=== PATIENT | male | born 1970 | race Caucasian/White ===

== ENCOUNTER 2017-01-13 21:32 | Emergency (ER) | payer BC, OTHER ==
[~2017-01-13] VITALS: Ht 182.9 cm; Wt 82.6 kg
[2017-01-13] MEDS ORDERED: LISI10TA2 PO (21:45)
[2017-01-13 22:01] LABS: BASOPHILS % (AUTO) 0 % (0-10); EOSINOPHILS # (AUTO) 0.3 10^3/uL (0.0-0.3); EOSINOPHILS % (AUTO) 2 % (0-10); LYMPHOCYTES # (AUTO) 2.9 X 10^3 (1.0-4.0); LYMPHOCYTES % (AUTO) 20 % (12-44); MEAN CORPUSCULAR HEMOGLOBIN 32 PG (25-34); MEAN CORPUSCULAR HGB CONC 35 G/DL (32-36); MEAN CORPUSCULAR VOLUME 91 FL (80-99); MEAN PLATELET VOLUME 9.9 FL (7.4-10.4); MONOCYTES # (AUTO) 1.1 X 10^3 (0.0-1.0); MONOCYTES % (AUTO) 8 % (0-12); NEUTROPHILS # (AUTO) 9.8 X 10^3 (1.8-7.8); NEUTROPHILS % (AUTO) 69 % (42-75); PLATELET COUNT 260 10^3/uL (130-400); RED CELL DISTRIBUTION WIDTH 13.1 % (10.0-14.5); WHITE BLOOD COUNT 14.1 10^3/uL (4.3-11.0)
[2017-01-13 22:10] LABS: INR 0.9 (0.8-1.4); PROTHROMBIN TIME PATIENT 12.2 SEC (12.2-14.7)
[2017-01-13 22:19] LABS: BAND NEUTROPHILS 0 %; BASOPHILS % (MANUAL) 1 %; EOSINOPHILS % (MANUAL) 1 %; LYMPHOCYTES % (MANUAL) 29 %; NEUTROPHILS % (MANUAL) 66 %
[2017-01-13 22:21] LABS: ALANINE AMINOTRANSFERASE 19 U/L (0-55); ALBUMIN 4.6 G/DL (3.2-4.5); ANION GAP 11 MMOL/L (5-14); ASPARTATE AMINO TRANSFERASE 18 U/L (5-34); BILIRUBIN,TOTAL 0.2 MG/DL (0.1-1.0); BLOOD UREA NITROGEN 22 MG/DL (7-18); BUN/CREATININE RATIO 22; CALCIUM 9.8 MG/DL (8.5-10.1); CARBON DIOXIDE 27 MMOL/L (21-32); CHLORIDE 105 MMOL/L (98-107); CREATININE SERUM 0.98 MG/DL (0.60-1.30); GFR ESTIMATED > 60; GLUCOSE 119 MG/DL (70-105); LIPASE 36 U/L (8-78); SODIUM 143 MMOL/L (135-145); TOTAL PROTEIN 7.4 G/DL (6.4-8.2); hs C REACTIVE PROTEIN 0.43 MG/DL (0.00-0.50)
[2017-01-13] MEDS ORDERED: IOHEXOL 350 MG/ML 100 ML (OMNIPAQUE 350) VIAL IV ONE (23:00)
[2017-01-13] MEDS ORDERED: NS 100 ML (IVPB) BAG IV ONE (23:00)
[2017-01-14] MEDS ORDERED: METR500T PO (00:25)
[2017-01-14] MEDS ORDERED: ONDA4TAB8 SL (00:25)
[2017-01-14] MEDS ORDERED: CIPR-225 PO (00:25)
--- NOTE | 2017-01-14 00:25 | ED Abdominal Pain ---
General Chief Complaint: Abdominal/GI Problems Stated Complaint: BLOOD IN STOOL AB PAIN Nursing Triage Note: c/o lower abdominal cramping, left sided abdominal pain since 0230 01/13/17 Sepsis Screen: No Definite Risk Source of Information: Patient History of Present Illness Time Seen By Provider: 21:41 Initial Comments This 46-year-old gentleman presents to emergency room with complaints of abdominal cramping, diaphoresis, vomiting, and rectal bleeding 5 episodes this evening. Symptoms started around 02:30. He has had abdominal cramping throughout the day but denies any diarrhea. Each passage of blood was approximately 2 tablespoons in volume and was not mixed with stool. He took Pepto dismal at home. He denies any dyspnea or lightheadedness. He has a bruise on his left upper arm from a prior injury. He denies any use of blood thinning medications. He does have a history of hemorrhoids. Allergies and Home Medications Allergies Coded Allergies: No Known Drug Allergies (Unverified , 01/13/17) Home Medications Ciprofloxacin HCl 500 Mg Tablet, 500 MG PO BID, #20 Prescribed by: ESTELA FORBES on 01/14/1724 Lisinopril 10 Mg Tablet, 10 MG PO DAILY, (Reported) Metronidazole 500 Mg Tablet, 500 MG PO TID, #30 Prescribed by: ESTELA FORBES on 01/14/1724 Ondansetron 4 Mg Tab.rapdis, 4 MG SL Q4H PRN for NAUSEA/VOMITING, #10 Prescribed by: ESTELA FORBES on 01/14/1724 Review of Systems Constitutional: see HPI, diaphoresis EENTM: No Symptoms Reported Respiratory: No Symptoms Reported Cardiovascular: No Symptoms Reported Gastrointestinal: See HPI Genitourinary: No Symptoms Reported Musculoskeletal: no symptoms reported Skin: no symptoms reported Psychiatric/Neurological: No Symptoms Reported Endocrine: No Symptoms Reported Hematologic/Lymphatic: See HPI Past Icqwnvp-Yssqcd-Xonedg Hx Patient Social History Alcohol Use: Occasionally Uses Recreational Drug Use: No Smoking Status: Current Everyday Smoker Type Used: Cigarettes 2nd Hand Smoke Exposure: Yes Recent Foreign Travel: No Contact w/Someone Who Travel: No Recent Infectious Disease Expo: No Recent Hopitalizations: No Immunizations Up To Date Tetanus Booster (TDap): Less than 5yrs Seasonal Allergies Seasonal Allergies: No Surgeries HX Surgeries: Yes Surgeries: Vasectomy Respiratory Hx Respiratory Disorders: No Cardiovascular Hx Cardiac Disorders: Yes Cardiac Disorders: Hypertension Neurological Hx Neurological Disorders: No Reproductive System Hx Reproductive Disorders: No Genitourinary Hx Genitourinary Disorders: No Gastrointestinal Hx Gastrointestinal Disorders: Yes Gastrointestinal Disorders: Hemorrhoids Musculoskeletal Hx Musculoskeletal Disorders: No Endocrine Hx Endocrine Disorders: No HEENT HX ENT Disorders: No Cancer Hx Cancer: No Psychosocial Hx Psychiatric Problems: No Integumentary HX Skin/Integumentary Disorder: No Blood Transfusions Hx Blood Disorders: No Family Medical History Significant Family History: Cancer (Bone), Diabetes, Hypertension Physical Exam Vital Signs Capillary Refill : Less Than 3 Seconds General Appearance: WD/WN, no apparent distress HEENT: PERRL/EOMI, normal ENT inspection, pharynx normal Neck: normal inspection Respiratory: lungs clear, normal breath sounds, no respiratory distress, no accessory muscle use Cardiovascular: regular rate, rhythm, no edema, no murmur Gastrointestinal: normal bowel sounds, soft, tenderness (Left lower abdomen) Rectal: normal rectal tone, tenderness, other (No active bleeding at the anus. 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 as tested, no motor/sensory deficits, alert, normal mood/affect, oriented x 3 Skin: normal color, warm/dry Progress/Results/Core Measures Results/Orders Lab Results Laboratory Tests Test 01/13/17 21:50 Range/Units White Blood Count 14.1 H 4.3-11.0 10^3/uL Red Blood Count 5.00 4.35-5.85 10^6/uL Hemoglobin 16.0 13.3-17.7 G/DL Hematocrit 46 40-54 % Mean Corpuscular Volume 91 80-99 FL Mean Corpuscular Hemoglobin 32 25-34 PG Mean Corpuscular Hemoglobin Concent 35 32-36 G/DL Red Cell Distribution Width 13.1 10.0-14.5 % Platelet Count 260 130-400 10^3/uL Mean Platelet Volume 9.9 7.4-10.4 FL Neutrophils (%) (Auto) 69 42-75 % Lymphocytes (%) (Auto) 20 12-44 % Monocytes (%) (Auto) 8 0-12 % Eosinophils (%) (Auto) 2 0-10 % Basophils (%) (Auto) 0 0-10 % Neutrophils # (Auto) 9.8 H 1.8-7.8 X 10^3 Lymphocytes # (Auto) 2.9 1.0-4.0 X 10^3 Monocytes # (Auto) 1.1 H 0.0-1.0 X 10^3 Eosinophils # (Auto) 0.3 0.0-0.3 10^3/uL Basophils # (Auto) 0.0 0.0-0.1 10^3/uL Neutrophils % (Manual) 66 % Lymphocytes % (Manual) 29 % Monocytes % (Manual) 3 % Eosinophils % (Manual) 1 % Basophils % (Manual) 1 % Band Neutrophils 0 % Blood Morphology Comment NORMAL Prothrombin Time 12.2 12.2-14.7 SEC INR Comment 0.9 0.8-1.4 Activated Partial Thromboplast Time 25 24-35 SEC Sodium Level 143 135-145 MMOL/L Potassium Level 4.0 3.6-5.0 MMOL/L Chloride Level 105 98-107 MMOL/L Carbon Dioxide Level 27 21-32 MMOL/L Anion Gap 11 5-14 MMOL/L Blood Urea Nitrogen 22 H 7-18 MG/DL Creatinine 0.98 0.60-1.30 MG/DL Estimat Glomerular Filtration Rate > 60 BUN/Creatinine Ratio 22 Glucose Level 119 H 70-105 MG/DL Calcium Level 9.8 8.5-10.1 MG/DL Total Bilirubin 0.2 0.1-1.0 MG/DL Aspartate Amino Transf (AST/SGOT) 18 5-34 U/L Alanine Aminotransferase (ALT/SGPT) 19 0-55 U/L Alkaline Phosphatase 102 40-136 U/L C-Reactive Protein High Sensitivity 0.43 0.00-0.50 MG/DL Total Protein 7.4 6.4-8.2 G/DL Albumin 4.6 H 3.2-4.5 G/DL Lipase 36 8-78 U/L My Orders Orders - ESTELA DARBY MD Cbc With Automated Diff (01/13/17 21:39) Comprehensive Metabolic Panel (01/13/17 21:39) Hs C Reactive Protein (01/13/17 21:39) Lipase (01/13/17 21:39) Protime With Inr (01/13/17 21:39) Partial Thromboplastin Time (01/13/17 21:39) Saline Lock/Iv-Start (01/13/17 21:39) Fecal Occult Bedside (01/13/17 21:39) Manual Differential (01/13/17 21:50) Ct Abdomen/Pelvis W (01/13/17 22:34) Iohexol Injection (Omnipaque 350 Mg/Ml 1 (01/13/17 23:00) Ns (Ivpb) (Sodium Chloride 0.9% Ivpb Bag (01/13/17 23:00) Ciprofloxacin Tablet (Cipro Tablet) (01/14/17 00:30) Metronidazole Tablet (Flagyl Tablet) (01/14/17 00:30) Medications Given in ED Vital Signs/I&O Blood Pressure Mean: 94 Point of Care Testing Fecal Occult: Positive Progress Note #1: Progress Note Because of the rectal bleeding, abdominal pain and cramping, and elevated WBC, CT of the abdomen and pelvis was obtained. Colitis was identified. Patient was given his initial dose of Cipro and Flagyl in the ER. Progress Note #2: Progress Note January 22, 2017, 14:25 - Patient was contacted by phone and informed of the [facility] radiologist's interpretation and was advised to have a colonoscopy performed. He was instructed to follow-up with his primary care provider for referral for endoscopy. He expressed understanding. Diagnostic Imaging Diagonstic Imaging: CT Plain Films/CT/US/NM/MRI: abdomen, pelvis Comments CT of the abdomen and pelvis viewed by me. Stat Rad report reviewed. Colitis was suspected. Departure Impression Impression: Primary Impression: Colitis Additional Impressions: Abdominal pain Qualified Codes: R10.32 - Left lower quadrant pain Hematochezia Nausea and vomiting Qualified Codes: R11.2 - Nausea with vomiting, unspecified Disposition: HOME, SELF-CARE Condition: Improved Departure-Patient Inst. Decision time for Depature: 00:15 Referrals: NO,LOCAL PHYSICIAN (PCP) Primary Care Physician Patient Instructions: Gastrointestinal Bleeding Add. Discharge Instructions: Complete your antibiotics as prescribed. You may take Tylenol for pain. Avoid use of anti-inflammatory indications such as ibuprofen or naproxen as they may worsen bleeding. Follow-up with your primary care provider soon as possible. Return to care if symptoms worsen or if you develop new symptoms such as fever. Observe a clear liquid diet until pain and bleeding improve. Then gradually advance your diet with small quantities of bland food as tolerated. Fill Zofran if needed for control of nausea. All discharge instructions reviewed with patient and/or family. Voiced understanding. Scripts Metronidazole (Flagyl) 500 Mg Tablet 500 MG PO TID, #30 TAB Prov: ESTELA DARBY MD 01/14/17 Ciprofloxacin HCl (Cipro) 500 Mg Tablet 500 MG PO BID, #20 TAB Prov: ESTELA DARBY MD 01/14/17 Ondansetron (Zofran Odt) 4 Mg Tab.rapdis 4 MG SL Q4H Y for NAUSEA/VOMITING, #10 TAB Prov: ESTELA DARBY MD 01/14/17 Copy Copies To 1: JENNIFER GARCIA JOSHUA T MD Jan 14, 2017 00:25
[2017-01-14 00:29] VITALS: BP 112/73
[2017-01-14] MEDS ORDERED: CIPROFLOXACIN 500 MG (CIPRO) TABLET PO ONE (00:30)
[2017-01-14] MEDS ORDERED: metroNIDAZOLE 500 MG (FLAGYL) TAB PO ONE (00:30)
--- NOTE | 2017-01-14 07:49 | Diagnostic Imaging Report ---
PROCEDURE: CT abdomen and pelvis with contrast. TECHNIQUE: Multiple contiguous axial images were obtained through the abdomen and pelvis after administration of intravenous contrast. INDICATION: Left lower quadrant pain with nausea and vomiting COMPARISON: None available FINDINGS: Minimal dependent atelectasis within the right lung base. The liver, spleen, pancreas, and adrenal glands are unremarkable. The gallbladder is completely decompressed though no definite large gallstones or pericholecystic inflammatory stranding seen. Bilateral renal cysts and additional hypodensities which are too small to completely characterize. No evidence of hydronephrosis. Mild vascular calcifications within the abdominal aorta and its branch vessels without aneurysmal dilatation of the abdominal aorta. The urinary bladder is unremarkable. Tiny fat-containing left inguinal hernia. The sigmoid colon is not well-distended. Questionable mural thickening of the sigmoid colon without adjacent inflammatory stranding. Significant mural thickening of the descending colon is noted with adjacent fat stranding. Persistent focal mural thickening is noted involving the proximal transverse colon. This persists and is not significantly changed on the delayed imaging. No evidence of bowel obstruction. The appendix is unremarkable. No pneumatosis. No significant adenopathy, free air, or free fluid within the abdomen or pelvis. No acute osseous abnormality. IMPRESSION: Significant mural thickening with adjacent inflammatory stranding associated with the descending colon, likely related to an underlying colitis, most likely infectious or inflammatory in nature. Persistent focal ringlike mural thickening associated with the proximal transverse colon. Although this may simply relate to poor distention, neoplasm is not excluded. Recommend correlation with most recent endoscopy. If the patient has not had an endoscopy, consideration for endoscopy should be made. Bilateral renal cysts and additional hypodensities which are too small to completely characterize. Mural thickening of the sigmoid colon without adjacent fat stranding. This may simply relate to poor distention, though mild colitis within this region not totally excluded. The gallbladder is completely decompressed. Agree with acute preliminary findings. However, preliminary report did not mention the questionable lesion within the proximal transverse colon. Report was faxed and called to [facility] ER by yisel at 7:48 am. BUCK Du, was also notified. Dictated by: Dictated on workstation # [id number]
== END 2017-01-14 00:28 | disposition home or self-care (01) ==
LOC: EDUNIT# 21:32 → ER 21:38
DX: K52.9 Noninfective gastroenteritis and colitis, unspecified (principal); K92.1 Melena; I10 Essential (primary) hypertension; N28.1 Cyst of kidney, acquired; F17.210 Nicotine dependence, cigarettes, uncomplicated; Z79.899 Other long term (current) drug therapy
CPT/HCPCS: 36415; 74177; 80053; 83690; 85007; 85027; 85610; 85730; 86141

== ENCOUNTER 2017-01-31 05:40 | Outpatient (CLI) | payer BC ==
[~2017-01-31] VITALS: Ht 182.9 cm; Wt 82.6 kg
[~2017-01-31 05:40] MED LIST: CIPR-225 PO; LISI10TA2 PO; METR500T PO; ONDA4TAB8 SL
== END 2017-01-31 13:55 ==
LOC: PREOP 05:40
PROVIDERS: ATTEND Surgery Pediatric Surgery
DX: Z01.818 Encounter for other preprocedural examination (principal); K92.2 Gastrointestinal hemorrhage, unspecified

== ENCOUNTER 2017-02-02 11:05 | Day surgery (SDC) | payer BC ==
[~2017-02-02] VITALS: Ht 182.9 cm; Wt 82.6 kg
[2017-02-02 11:15] VITALS: BP 123/76
[2017-02-02] MEDS ORDERED: NS IV 500 ML 500 ML IV PRN (11:15)
[2017-02-02] MEDS ORDERED: LIDOCAINE JELLY 2% (XYLOCAINE) 5 ML TUBE MM PRN (11:15)
[2017-02-02] MEDS ORDERED: NALOXONE 0.4 MG/ML 1 ML (NARCAN) VIAL IVP PRN (11:15)
[2017-02-02] MEDS ORDERED: FLUMAZENIL (ROMAZICON) 0.1 MG/ML 5 ML VIAL INJ PRN (11:15)
--- NOTE | 2017-02-02 12:51 | Conscious Sedation/ASA ---
Conscious Sedation Pre-Proced Time Reviewed: 12:05 ASA Class: 2 Airway Mallampati Classification: ([place] appropriate class) I. II. III, IV Lungs Heart ASA score ASA 1: a normal healthy patient ASA 2: a patient with a mild systemic disease (mid diabetes, controlled hypertension, obesity ASA 3: a patient with a severe systemic disease that limits activity (angina , COPD, prior Myocardial infarction) ASA 4: a patient with an incapacitating disease that is a constant threat to life (CHF, renal failure) ASA 5: a moribund patient not expected to survive 24 hrs. (ruptured aneurysm) ASA 6: a declared brain patient whose organs are being harvested. For emergent operations, add the letter E after the classification Grade 2 Sedation Plan: Analgesia, Amnesia, Plan communicated to team members, Discussed options with patient/fam, Discussed risks with patient/fam Note The patient is an appropriate candidate to undergo the planned procedure, sedation, and anesthesia. The patient immediately re-assessed prior to indication. FADI BECERRA MD Feb 02, 2017 12:51 pm
--- NOTE | 2017-02-02 12:51 | Progress Note-Pre Operative ---
Pre-Operative Progress Note H&P Reviewed The H&P was reviewed, patient examined and no changes noted. Date H&P Reviewed: Feb 02, 2017 Time H&P Reviewed: 12:05 Pre-Operative Diagnosis: hx colitis FADI BECERRA MD Feb 02, 2017 12:51 pm
[2017-02-02] MEDS ORDERED: ACETAMINOPHEN 325 MG TABLET/CAPLET (TYLENOL) PO PRN (13:00)
[2017-02-02] MEDS ORDERED: HYDROcodone/APAP 5 MG/325 MG (LORTAB) TAB PO PRN (13:00)
[2017-02-02] MEDS ORDERED: morphine INJ 10 MG/ML 1ML (SYR OR VIAL) IV PRN (13:00)
[2017-02-02] MEDS ORDERED: ONDANSETRON 4 MG/2 ML (SDV) Z0FRAN IV PRN (13:00)
[2017-02-02] MEDS ORDERED: MIDAZOLAM 2 MG/2 ML (VERSED) VIAL ONE ×4 (13:10)
[2017-02-02] MEDS ORDERED: LIDOCAINE JELLY 2% (XYLOCAINE) 5 ML TUBE ONE (13:11)
[2017-02-02] MEDS ORDERED: fentaNYL INJECTION 100 MCG/2 ML AMP ONE ×2 (13:11)
[2017-02-02] MEDS: fentaNYL INJECTION 100 MCG/2 ML AMP IVP PRN ×4 (13:25→13:55)
[2017-02-02] MEDS: MIDAZOLAM 2 MG/2 ML (VERSED) VIAL IVP PRN ×4 (13:28→13:56)
--- NOTE | 2017-02-02 14:16 | Progress Note-Post Operative ---
Post-Operative Progess Note Surgeon (s)/Pararescue Craftsman (s) Surgeon FADI BECERRA MD Pararescue Craftsman: none Pre-Operative Diagnosis hx colitis Post-Operative Diagnosis chronic stage 1 ext and int hemorrhoids, small patch inflammation hepatic flexure. Post-Op Procedure Note Date of Procedure: Feb 02, 2017 Name of Procedure Performed: Colonoscopy with bx. Description of the Procedure: Colonoscopy with bx. Findings of the Procedure . Anesthesia Type CS Estimated blood loss (mL): minimal Specimen(s) collected/removed hepatic flexure FADI BECERRA MD Feb 02, 2017 2:16 pm
--- NOTE | 2017-02-02 14:17 | Discharge Inst-Surgical ---
D/C Lap Instructions-HERNAN Follow Up PRN Activity as tolerated High Fiber Diet 25g or more per day Avoid Alcohol, Caffeine, Spicy Caberfae and Acid foods. Drink 64 fluid oz or more of fluids per day. Symptoms to Report: Fever over 101 degree F, Nausea/Vomiting If any problems/questions: Contact your physician or go to Emergency Room FADI BECERRA MD Feb 02, 2017 2:17 pm
[2017-02-02 14:30] VITALS: BP 128/76
[2017-02-02 14:57] VITALS: BP 130/78
[2017-02-02 14:59] VITALS: BP 130/78
--- NOTE | 2017-02-02 16:24 | OPERATIVE REPORT ---
DATE OF SERVICE: 02/02/2017 PREOPERATIVE DIAGNOSIS: Abdominal pain, colitis. POSTOPERATIVE DIAGNOSIS: Mild chronic stage I external and internal hemorrhoids. There was a small solitary patch of inflammation at approximately the hepatic flexure. No ulcerations. PROCEDURE: Colonoscopy with biopsy. SURGEON: Dr. Becerra. ANESTHESIA: Conscious sedation. ESTIMATED BLOOD LOSS: Minimal. FINDINGS: Chronic stage I external and internal hemorrhoids. Prostate gland was palpable and appeared normal. The rectum and sigmoid colon were normal, as was the transverse colon and descending colon. There was a very small patch of inflammation along the hepatic flexure. No ulcerations. This was biopsied using forceps with visualization and good hemostasis. The endoscope was then advanced through the ascending colon, the cecum and these segments were normal. There were no polyps or any neoplasms identified throughout the colon or rectum. DISPOSITION: The patient tolerated the procedure well. The patient is a 46-year-old male who has had issues with abdominal pain in the left lower abdominal quadrant which is crampy in nature with associated nausea and vomiting. He had a CT scan performed which did show mural thickening and inflammatory stranding around the descending colon, as well as proximal transverse colon. He does not report any diffuse or intermittent episodes of diarrhea, as well as no red blood per rectum. He does have risk factors for ischemic colitis including hypertension and greater than 20 year smoking history. 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 The patient was brought to the endoscopy suite and laid in the left lateral decubitus position. After adequate IV pain and sedative medications and conscious sedation anesthesia, a digital rectal examination was performed. Mild chronic stage I external and internal hemorrhoids were identified which were not edematous and no bleeding. Normal sphincter tone was felt, and there were no palpable masses. The prostate gland was palpable and appeared normal. The endoscope was then intubated to the anus and rectum and gently insufflated. The endoscope was then advanced thru the valves of Case of the rectum with no polyps or anyneoplasms identified. We then proceeded through the sigmoid colon. There were no diverticulosis identified. The endoscope was then advanced to the descending colon and the transverse colon. At approximately the hepatic flexure, there was a very small patch of inflammation approximately 1 cm in size. There were no ulcerations. This was biopsied using forceps for visualization and good hemostasis. The endoscope was then advanced through the ascending colon and the cecum. These segments were normal. There were no polyps or any neoplasms identified throughout the colon or rectum, as well as no severe inflammatory changes. The endoscope was then slowly withdrawn with taking a second look and suctioning all residual air with no additional findings. The patient tolerated the procedure well. We will await the biopsy results; however, this was most likely secondary to an ischemic colitis due to low flow states due to the nature of his work, as well as smoking history. We will also recommend smoking cessation, as well as staying hydrated, especially during warm weather. Job ID: [id number] DocumentID: [id number] Dictated Date: 02/02/2017 14:05:17 Regulatory Assistant Date: 02/02/2017 16:23:37 Dictated By: FADI BECERRA MD MTDD
== END 2017-02-02 15:02 | disposition home or self-care (01) ==
LOC: ENDO 11:05
PROVIDERS: ATTEND Surgery Pediatric Surgery
DX: K52.9 Noninfective gastroenteritis and colitis, unspecified (principal); K64.0 First degree hemorrhoids
CPT/HCPCS: 88305

== ENCOUNTER → 2019-09-24 | Outpatient (CLI) | payer BC ==
[~2019-09-24] VITALS: Ht 183 cm; Wt 87.0 kg
[~2019-09-24] MED LIST changes: +ACET325T38 PO; +ASPI-983 PO; +ATOR20TA66 PO; +CATHETER FLUSH 10 ML SYR IV PRN; +CETI10TA17 PO; +REGADENOSON 0.4 MG/5 ML SYR (LEXISCAN) IV ONE; +TICA90TA PO
[2019-09-24 09:46] VITALS: BP 145/61
--- NOTE | 2019-09-24 23:28 | STRESS TEST ---
DATE OF SERVICE: 09/24/2019 LEXISCAN MYOVIEW STRESS TEST Baseline heart rate is 57, baseline blood pressure 113/72. Baseline EKG is sinus rhythm with no ischemic changes. In summary, the patient was scheduled for exercise Myoview stress test, was unable to exercise beyond 8 minutes on standard Richardson protocol, test was converted to Lexiscan Myoview stress test. The patient received 0.4 mg of Lexiscan followed by 30.2 mCi of technetium-99 Myoview. Throughout the test, there were no EKG changes. The resting and stress images were reviewed and compared in the short axis, horizontal long axis, and vertical long axis views. Review of the images showed decreased uptake involving the whole inferior wall and inferoseptum with mild reversibility. SSS is 15, SDS 4, TID value 0.97. On the gated images, the left ventricle appeared to be normal size with hypokinesia at the inferior wall. Calculated ejection fraction 50%. CONCLUSION: 1. The patient was unable to achieve target heart rate. Test was terminated at minute 7 and converted to Lexiscan Myoview stress test. 2. The patient tolerated Lexiscan well. 3. Decreased uptake involving the whole inferior wall and inferoseptum with mild reversibility. 4. Normal left ventricular size with hypokinesia at the inferior wall. Calculated ejection fraction 50%. Job ID: [id number] DocumentID: [id number] Dictated Date: 09/24/2019 17:07:14 Medical Consultant Date: 09/24/2019 23:27:52 Dictated By: ROSA MARIA TADEO MD
== END ==
LOC: CARD 07:40
PROVIDERS: ATTEND Internal Medicine Cardiovascular Disease
DX: I10 Essential (primary) hypertension (principal); E78.2 Mixed hyperlipidemia; R07.89 Other chest pain; Z72.0 Tobacco use
CPT/HCPCS: 78452; 93017

== ENCOUNTER 2019-09-26 07:42 | Day surgery (SDC) | payer BC ==
[~2019-09-26] VITALS: Ht 182.8 cm; Wt 87.3 kg
[~2019-09-26 07:42] MED LIST changes: -ACET325T38 PO; -ASPI-983 PO; -ATOR20TA66 PO; -CATHETER FLUSH 10 ML SYR IV PRN; -CETI10TA17 PO; -REGADENOSON 0.4 MG/5 ML SYR (LEXISCAN) IV ONE; -TICA90TA PO
[2019-09-26] MEDS ORDERED: NS IV 1000 ML 1,000 ML IV SCH ×2 (07:53→08:00)
[2019-09-26] MEDS ORDERED: HEParin 1000 UNIT/ML (10ML VIAL) FOR BOLUS ONE ×2 (07:53→10:28)
[2019-09-26] MEDS ORDERED: LIDOCAINE 1% INJ 20 ML 20 ML VIAL ONE (07:53)
[2019-09-26] MEDS ORDERED: NS IV 1000 ML 3,000 ML ONE (07:54)
[2019-09-26 08:19] VITALS: BP 131/88
[2019-09-26 08:22] LABS: HEMOGLOBIN 15.1 G/DL (13.3-17.7); MEAN PLATELET VOLUME 9.8 FL (7.4-10.4); RED CELL DISTRIBUTION WIDTH 13.2 % (10.0-14.5); WHITE BLOOD COUNT 9.2 10^3/uL (4.3-11.0)
--- NOTE | 2019-09-26 08:27 | Diagnostic Imaging Report ---
Portable erect AP chest at 8:18. Indication: Preop heart cath. There are no prior studies available for comparison. The heart size is within normal limits. The lungs are clear. There is no evidence of failure, pneumonia or for pleural effusion. The mediastinum is not widened. The osseous structures are intact. Impression: There is no sign of active disease. Dictated by: Dictated on workstation # [id number]
[2019-09-26 08:37] LABS: PROTHROMBIN TIME PATIENT 13.4 SEC (12.2-14.7)
[2019-09-26 08:42] LABS: ALANINE AMINOTRANSFERASE 32 U/L (0-55); ALBUMIN 4.5 GM/DL (3.2-4.5); ALKALINE PHOSPHATASE 117 U/L (40-136); BILIRUBIN,TOTAL 0.4 MG/DL (0.1-1.0); BUN/CREATININE RATIO 14; CALCIUM 9.9 MG/DL (8.5-10.1); CARBON DIOXIDE 24 MMOL/L (21-32); CHLORIDE 104 MMOL/L (98-107); CHOLESTEROL 217 MG/DL (< 200); GFR ESTIMATED > 60; GLUCOSE 119 MG/DL (70-105); HDL CHOLESTEROL 28 MG/DL (40-60); POTASSIUM 4.3 MMOL/L (3.6-5.0); SODIUM 139 MMOL/L (135-145); TOTAL PROTEIN 7.6 GM/DL (6.4-8.2); TRIGLYCERIDES 213 MG/DL (<150); VLDL CHOLESTEROL 43 MG/DL (5-40)
[2019-09-26] MEDS ORDERED: ACET325T38 PO (08:49)
[2019-09-26] MEDS ORDERED: CETI10TA17 PO (08:49)
[2019-09-26] MEDS ORDERED: fentaNYL INJECTION 100 MCG/2 ML AMP ONE (09:31)
[2019-09-26] MEDS ORDERED: MIDAZOLAM 5 MG/5 ML (VERSED) VIAL ONE (09:31)
--- NOTE | 2019-09-26 10:06 | Cardiac Procedure Note-CS/ASA ---
Pre-Procedure Note Pre-Op Procedure Note H&P Reviewed The H&P was reviewed, patient examined and no changes noted. Date H&P Reviewed: Sep 26, 2019 Time H&P Reviewed: 10:06 Conscious Sedation Pre-Proced Time 10:06 ASA Score 3 For ASA 3 and 4: Consider anesthesia and medical clearance. Also, for patients with a history of failed moderate sedation consider anesthesia. Airway Lungs Heart ASA score ASA 1: a normal healthy patient ASA 2: a patient with a mild systemic disease (mid diabetes, controlled hypertension, obesity x ASA 3: a patient with a severe systemic disease that limits activity (angina, COPD, prior Myocardial infarction) ASA 4: a patient with an incapacitating disease that is a constant threat to life (CHF, renal failure) ASA 5: a moribund patient not expected to survive 24 hrs. (ruptured aneurysm) ASA 6: a declared brain- patient whose organs are being harvested. For emergent operations, add the letter E after the classification Mallampati Classification Grade 3 Sedation Plan Analgesia, Amnesia, Plan communicated to team members, Discussed options with patient/fam, Discussed risks with patient/fam The patient is an appropriate candidate to undergo the planned procedure, sedation, and anesthesia. The patient immediately re-assessed prior to indication. ROSA MARIA TADEO MD Sep 26, 2019 10:06 POS
[2019-09-26] MEDS ORDERED: ADENOSINE 3 MG/1 ML (ADENOSCAN) 30ML VIAL IV ONE (10:15)
[2019-09-26] MEDS ORDERED: NITRO DRIP 25000 MCG/D5W 250 ML IV ONE (10:33)
[2019-09-26] MEDS ORDERED: TICAGRELOR 90 MG TABLET (BRILINTA) PO ONE (10:41)
[2019-09-26] MEDS ORDERED: ASPIRIN 325 MG (5 GR) TABLET ONE (10:41)
[2019-09-26] MEDS ORDERED: PATIENT MAY USE OWN MEDS, ALL PO SCH (10:45)
--- NOTE | 2019-09-26 10:54 | Cardiac Cath Report ---
Cardiac Cath Report Physician (s)/Colloid Mill Operator (s) Physician ROSA MARIA TADEO MD Pre-Procedure Diagnosis Pre-Procedure Diagnosis: CAD Post-Procedure Note Procedure Start Date: Sep 26, 2019 Name of Procedure: [facility] FFR to LAD Stent to LAD Findings/Procedure Note PROCEDURE NOTE: 48 years old gentleman with abnormal stress test, scheduled For cardiac catheterization possible . After explaining the procedure to the patient, all pros and cons were explained, all questions were answered. The patient signed the consent and then he was placed on the cardiac catheterization laboratory. Groin was prepped SL fashion local anesthesia was used. Sheath placed in the right femoral artery. Jannie right and left catheter were used to access the coronary system. Pigtail was used to access the left ventricular cavity. Left ventriculogram was done Patient was loaded with heparin, FL guide was used, advanced to the left coronary system, patie, FFR was 0.88, after 45 minutes of Adenosine FFR was 0.75. Primary stenting using Alondra 2.5 x18 mm expanded to 2.8 mm under 15 walter with excellent results At the end of the procedure the sheath was removed. Closure device was used FINDINGS: Hemodynamics LV 90/2, end-diastolic pressure of 2 Aorta 102/67 mean of 24 ANATOMY: Left Main is free of obstructive disease Left Anterior Descending has severe mid stenosis, FFR is 0.75 with Adenosine, primary stenting using Alondra 2.5 x 18 mm expanded to 2.8 with excellent results Left Circumflex has moderate disease at the midportion Right Coronory Artery is dominant artery, totally occluded proximally, receiving collaterals from the LAD LV Gram is normal in size with hypokinesia at the base of the inferior wall, EF 60 percent CONCLUSION: 1. Severe mid LAD stenosis, primary stenting using Alondra 2.5 x 18 mm expanded to 2.8 mm with excellent results 2. Totally occluded large dominant right coronary artery, receiving collaterals from the LAD 3. Mild to moderate disease in the mid left circumflex artery 4. Normal left ventricular size, hypokinesia at the base of the inferior wall, EF 60 percent DISCUSSION AND RECOMMENDATION: maximize medical therapy, started on aspirin and Brilinta Anesthesia Type: Conscious Sedation Estimated blood loss (mL): 25 ml Contrast Amount: 133 ml Total Radiation Dose: 579 mGy Post-Procedure Diagnosis Post-operative diagnosis: Chest pain Coronary artery disease Hypertension Hyperlipidemia ROSA MARIA TADEO MD Sep 26, 2019 10:54 POS
[2019-09-26] MEDS ORDERED: ACETAMINOPHEN 325 MG TABLET PO PRN (11:00)
[2019-09-26 11:05] VITALS: BP 124/81
--- NOTE | 2019-09-26 11:13 | Discharge Inst-Post CATH ---
Discharge Inst-CATH/EP Problems Reviewed?: Yes Post Cardiac Cath/EP D/C Inst Follow Up/Plan Appointment with Dr. Urban's office in 2-4 weeks <b>CARDIAC CATH/EP PROCEDURE DISCHARGE INSTRUCTIONS</b> ACTIVITY * Go Home directly and rest. * Limit activity of the leg (or wrist if it was used) for 7 days including aerobics, swimming, jogging, bicycling, etc. * Restrict stair-climbing for 7 days if possible, if not, climb up with your non-cath leg, then bring together on the same step. * Avoid lifting, pushing, pulling or excessive movement of the affected extremity for 7 days. * Customary sexual activity may be resumed after 2 days-use caution not to use a position that strains or causes pain to the affected extremity. * No driving for 24 hours. * NO SMOKING. * Avoid straining for bowel movements for 7 days. * Gentle walking on level ground is allowed. * Returning to work will depend on the type of procedure and the results. Your doctor will discuss this with you. CALL YOUR DOCTOR FOR ANY OF THE FOLLOWING: *If bleeding from the puncture site occurs- Apply gentle pressure to site with clean cloth and call your doctor or EMS. * If a knot or lump forms under the skin, increases in size, or causes pain. * If bruising appears to be worsening or moving further down your leg instead of disappearing. * Temperature above 101 F. CARE OF YOUR GROIN INCISION; * Bruising or purple discoloration of the skin near the puncture site is common. * You may shower only, no bathtub bathing for 5 days. Be careful to avoid slipping as your leg may feel stiff. * If a closure device was used on your femoral artery, please see the attached guide regarding care of the device and your leg. * Leave dressing on FOR 24 hours. CARE OF YOUR WRIST INCISION; * Bruising or purple discoloration of the skin near the puncture site is common. * You may shower. * DO NOT submerge wrist. * Leave dressing on FOR 24 hours. ROSA MARIA URBAN MD Sep 26, 2019 11:13 POS
[2019-09-26] MEDS ORDERED: ATOR20TA66 PO (11:14)
[2019-09-26] MEDS ORDERED: ASPI-983 PO (11:14)
[2019-09-26] MEDS ORDERED: TICA90TA PO (11:14)
--- NOTE | 2019-09-26 14:03 | NUR ---
SPOKE WITH THE PT (HE HAD HIS HOME MEDS) TO COMPLETE THE MED REC. THE PT WAS ABLE TO TELL ME HOW/WHEN HE TAKES EACH MED. THE FOLLOWING ARE FILL DATES: 08-14-2019 LISINOPRIL #90/90DS OTC MEDS: APAP CETIRIZINE
[2019-09-26 16:00] VITALS: BP 127/74
[2019-09-26 20:00] VITALS: BP 124/74
[2019-09-26] MEDS: TICAGRELOR 90 MG TABLET (BRILINTA) PO SCH (21:00)
[2019-09-26] MEDS: NS IV 1000 ML 1,000 ML IV SCH ×2 (21:02→21:04)
[2019-09-27] VITALS: BP 117/67
[2019-09-27 03:39] LABS: MEAN PLATELET VOLUME 10.2 FL (7.4-10.4); RED CELL DISTRIBUTION WIDTH 12.8 % (10.0-14.5); WHITE BLOOD COUNT 9.7 10^3/uL (4.3-11.0)
[2019-09-27 03:55] LABS: BUN/CREATININE RATIO 15; CALCIUM 9.5 MG/DL (8.5-10.1); CARBON DIOXIDE 21 MMOL/L (21-32); CHLORIDE 106 MMOL/L (98-107); GFR ESTIMATED > 60; GLUCOSE 122 MG/DL (70-105); SODIUM 140 MMOL/L (135-145)
[2019-09-27 04:00] VITALS: BP 117/71
[2019-09-27] MEDS: NS IV 1000 ML 1,000 ML IV SCH (06:32)
[2019-09-27 07:47] VITALS: BP 121/72
[2019-09-27] MEDS ORDERED: ASPIRIN E.C. 81 MG (ECOTRIN) TAB PO SCH (09:00)
[2019-09-27] MEDS ORDERED: lisINopril 10 MG (PRINIVIL) TABLET PO SCH (09:00)
[2019-09-27] MEDS ORDERED: LORATADINE (CLARITIN) 10 MG TAB PO SCH (09:00)
[2019-09-27] MEDS: TICAGRELOR 90 MG TABLET (BRILINTA) PO SCH (09:29)
[2019-09-27 10:45] VITALS: BP 121/72
--- NOTE | 2019-09-27 10:45 | NUR ---
DISMISSED FROM CARDIAC STEPDOWN, ALERT AND ORIENTED, VERBALIZED UNDERSTANDING OF DISCHARGE INSTRUCTIONS, DRESSING TO RIGHT GROIN WITHOUT BRUISING OR HEMATOMA, DENIES PAIN OR SOB, INSTRUCTED ON HOME MEDICATIONS, DISMISSED PER W/C, ACCOMPANIED BY AND STAFF.
--- NOTE | 2019-09-27 11:41 | Progress Note - Cardiology ---
Cardiology SOAP Progress Note Objective: I&O/Vital Signs 09/27/19 09/27/19 09/27/19 09/27/19 00:00 01:00 04:00 07:00 Temp 36.4 36.6 Pulse 67 73 70 65 Resp 14 14 B/P (MAP) 117/67 (84) 117/71 (86) Pulse Ox 95 96 O2 Delivery Room Air Room Air 09/27/19 09/27/19 09/27/19 07:47 09:00 10:45 Temp 36.8 36.8 Pulse 63 63 Resp 18 18 B/P (MAP) 121/72 (88) 121/72 Pulse Ox 96 97 97 O2 Delivery Room Air Room Air Room Air 09/27/19 00:00 Intake Total 2140 ml Balance 2140 ml Weight (Pounds): 182 Weight (Ounces): 0.0 Weight (Calculated Kilograms): 82.749908 Groin site without hematoma: Yes Condition: DP/PT pulses palpable Bruising: mild bruising Constitutional: AAO x 3, well-developed, well-nourished Respiratory: No accessory muscle use; other (good bilateral air entry) Cardiovascular: regular rate-rhythm, S1 and S2, systolic murmur (faint SINDI at card base) Gastrointestional: No tender; soft; No guarding, No rebound; audible bowel sounds Extremities: No clubbing, No cyanosis, No significant edema Neurologic/Psychiatric: oriented x 3, other (moves all limbs equally, gait normal) Skin: No rash on exposed areas, No ulcerations on exposed areas Results/Procedures: Labs Laboratory Tests 09/27/19 03:19: White Blood Count 9.7, Red Blood Count 4.34L, Hemoglobin 14.0, Hematocrit 41, Mean Corpuscular Volume 94, Mean Corpuscular Hemoglobin 32, Mean Corpuscular Hemoglobin Concent 34, Red Cell Distribution Width 12.8, Platelet Count 252, Mean Platelet Volume 10.2, Sodium Level 140, Potassium Level 4.0, Chloride Level 106, Carbon Dioxide Level 21, Anion Gap 13, Blood Urea Nitrogen 12, Creatinine 0.80, Estimat Glomerular Filtration Rate > 60, BUN/Creatinine Ratio 15, Glucose Level 122H, Calcium Level 9.5 Laboratory Tests 09/26/19 08:10 09/27/19 03:19 A/P: Assessment: CAD. Card cath of 09/26/19: 1. Severe mid LAD stenosis, primary stenting using Alondra 2.5 x 18 mm expanded to 2.8 mm with excellent results. Totally occluded large dominant right coronary artery, receiving collaterals from the LAD. Mild to moderate disease in the mid left circumflex artery. Normal left ventricular size, hypokinesia at the base of the inferior wall, EF 60 percent Hypertension Gastroesophageal reflux disease Tobaccoism Impaired fasting glucose Gallstones and chronic cholecystitis Plan: * I interviewed and examined him and reviewed his records * He is clinically stable and wishes to go home * Meds as advised by Dr Urban * F/u closely with Dr Urban as outpatine * Advised to completely refrain from tobacco use and to be compliant with meds JOSUE ROSS MD FACP FAC CCDS Sep 27, 2019 11:41 POS
== END 2019-09-27 10:45 | disposition home or self-care (01) ==
LOC: CATH 07:42 → CSD 11:05 → CATH 09-27 10:45
PROVIDERS: ATTEND Internal Medicine Cardiovascular Disease
DX: I25.10 Atherosclerotic heart disease of native coronary artery without angina pectoris (principal); I10 Essential (primary) hypertension; K21.9 Gastro-esophageal reflux disease without esophagitis; Z90.49 Acquired absence of other specified parts of digestive tract; E78.2 Mixed hyperlipidemia; Z79.899 Other long term (current) drug therapy; F17.210 Nicotine dependence, cigarettes, uncomplicated
CPT/HCPCS: 36415; 71045; 80048; 80053; 80061; 85027; 85610; 85730; 87081; 93005; 93453

== ENCOUNTER → 2020-04-23 | Outpatient (CLI) | payer BC ==
[~2020-04-23] MED LIST changes: +ACET325T38 PO; +ASPI-983 PO; +ATOR20TA66 PO; +CETI10TA17 PO; +TICA90TA PO
--- NOTE | 2020-04-23 09:33 | Diagnostic Imaging Report ---
CLINICAL INDICATION: Patient with low back pain and sciatica left side since August. EXAM: Axial CT scan of the lumbar spine performed without IV contrast. Sagittal and coronal reformatted images are created. COMPARISON: CT scan of the abdomen and pelvis with contrast dated 01/13/2017. FINDINGS: There is no acute lumbar spine fracture or dislocation. 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 There is no significant paraspinal soft tissue abnormality. L1-L2, L2-L3, and L3-L4: Unremarkable. L4-L5: There is a stable small posterior disk herniation which causes at least mild central canal narrowing. There is also disk bulging into the foraminal regions bilaterally which causes mild right neural foramen narrowing and mild to moderate left neural foramen narrowing which is not significantly changed. L5-S1: There is a broad posterior disk herniation which extends into the foraminal regions bilaterally. There is stable mild to moderate bilateral neural foramen narrowing. There is no significant central canal narrowing. IMPRESSION: 1: There is no significant change to the L4-L5 and L5-S1 broad posterior disk herniations which causes mild to moderate left L4-L5 neural foramen narrowing and mild to moderate bilateral L5-S1 neural foramen narrowing. There appears to be mild L4-L5 central canal narrowing. These findings would be better evaluated with MRI of the lumbar spine. 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 Dictated by: Dictated on workstation # [id number]
== END ==
LOC: RAD 08:50
PROVIDERS: ATTEND Nurse Practitioner Family
DX: M48.07 Spinal stenosis, lumbosacral region (principal); D18.09 Hemangioma of other sites; I10 Essential (primary) hypertension; K21.0 Gastro-esophageal reflux disease with esophagitis; J30.89 Other allergic rhinitis; M15.9 Polyosteoarthritis, unspecified; M54.32 Sciatica, left side; F17.200 Nicotine dependence, unspecified, uncomplicated
CPT/HCPCS: 72131

== ENCOUNTER → 2020-09-28 | Outpatient (CLI) | payer BC ==
[~2020-09-28] MED LIST changes: +ASPI-1238 PO; -ASPI-983 PO
== END ==
LOC: CARD 14:00
PROVIDERS: ATTEND Physician Assistant
DX: I25.10 Atherosclerotic heart disease of native coronary artery without angina pectoris (principal)
CPT/HCPCS: 93306

== ENCOUNTER → 2020-09-29 | Outpatient (CLI) | payer BC ==
[~2020-09-29] VITALS: Ht 182 cm; Wt 87.0 kg
[~2020-09-29] MED LIST changes: +CATHETER FLUSH 10 ML SYR IV PRN
[2020-09-29 09:21] VITALS: BP 134/73
--- NOTE | 2020-09-29 11:50 | Cardiology Stress Test Report ---
Stress Test Report Date of Procedure/Referring: Date of Procedure: Sep 29, 2020 Sana Koroma Admitting Physician No,Local Physician Baseline Blood Pressure: Blood Pressure Systolic: 134 Blood Pressure Diastolic: 73 Vital Signs Date Time Temp Pulse Resp B/P (MAP) Pulse Ox O2 Delivery O2 Flow Rate FiO2 09/29/20 09:21 64 134/73 (93) Baseline Vital Signs Vital Signs Date Time Temp Pulse Resp B/P (MAP) Pulse Ox O2 Delivery O2 Flow Rate FiO2 09/29/20 09:21 64 134/73 (93) Baseline EKG: Baseline EKG: normal sinus rhythm Summary: After explaining the procedure and details to the patient, he signed the consent and was brought to the stress nuclear laboratory. Patient exercised on standard Richardson protocol, EKG, heart rate and blood pressure were monitored continuously, resting and stress doses of radio tracer were injected, imaging was acquired and reviewed in the short axis, horizontal long axis and vertical long axis views Patient was able to exercise for a total of 10:12 minutes on Richardson protocol, METs 11.9 Maximum heart rate 151 Maximum blood pressure 208/70 Stress EKG, Minimal nondiagnostic changes Recovery EKG, Return to baseline TID: 1.13 SSS: 9 SDS: 1 EF: 53 Conclusion: 1. Excellent exercise tolerance for 10 minutes and 12 seconds on Richardson protocol, 11.9 metastases achieving 88 percent of maximum expected heart rate 2. Hypertensive response to exercise with peak blood pressure 208/70 return to baseline during recovery 3. Minimal nondiagnostic EKG changes with exercise returned to baseline during recovery 4. Decreased uptake involving the basal to mid inferior wall and inferoseptum with subtle reversibility, could be secondary to diaphragmatic attenuation 5. Normal left ventricular size, EF 53 percent ROSA MARIA TADEO MD Sep 29, 2020 11:50
== END ==
LOC: CARD 08:00
PROVIDERS: ATTEND Physician Assistant
DX: I25.10 Atherosclerotic heart disease of native coronary artery without angina pectoris (principal)
CPT/HCPCS: 78452; 93017; A9502

== ENCOUNTER → 2022-01-06 | Outpatient (CLI) | payer BC, OTHER ==
[~2022-01-06] MED LIST changes: -CATHETER FLUSH 10 ML SYR IV PRN; -LISI10TA2 PO; +LISI10TA25 PO
== END ==
LOC: CARD 09:00
PROVIDERS: ATTEND Physician Assistant
DX: I10 Essential (primary) hypertension (principal)
CPT/HCPCS: 93306

== ENCOUNTER → 2022-01-25 | Outpatient (CLI) | payer BC, OTHER ==
[~2022-01-25] MED LIST changes: +CATHETER FLUSH 10 ML SYR IVP PRN; +REGADENOSON 0.4 MG/5 ML SYR (LEXISCAN) IV ONE
[2022-01-25 08:47] VITALS: BP 152/78
--- NOTE | 2022-01-25 14:09 | Cardiology Stress Test Report ---
Stress Test Report Date of Procedure/Referring: Date of Procedure: Jan 25, 2022 Sana Koroma Admitting Physician No,Local Physician Indications: HTN Baseline Heart Rate: 67 Baseline Blood Pressure: Blood Pressure Systolic: 152 Blood Pressure Diastolic: 78 Baseline Vitals Vital Signs Date Time Temp Pulse Resp B/P (MAP) Pulse Ox O2 Delivery O2 Flow Rate FiO2 01/25/22 08:47 67 152/78 (102) Baseline EKG: Baseline EKG: NSR Summary After explaining the procedure to the patient, he signed a consent and then brought to the stress nuclear laboratory. Patient received 0.4 mg Lexiscan for stress test, ECG, heart rate and blood pressure were monitored continuously. Resting and stress dose of radio tracer were injected, imaging was acquired and reviewed in short axis, horizontal long axis and vertical long axis views. TID: 1.03 SSS: 9 SDS: 1 EF: 51 1. Patient was unable to exercise beyond 7 minutes and 15 seconds, achieved only 75% of maximal expected heart rate, test was terminated and converted to Lexiscan Myoview stress test 2. Patient tolerated Lexiscan well 3. Diaphragmatic attenuation with decreased uptake involving the whole inferior wall and inferoseptum with mild reversibility suggestive of mild ischemia 4. Normal left ventricular size, EF 51% ROSA MARIA TADEO MD Jan 25, 2022 14:09
== END ==
LOC: CARD 07:30
PROVIDERS: ATTEND Physician Assistant
DX: I10 Essential (primary) hypertension (principal)
CPT/HCPCS: 78452; 93017; A9502